=== PATIENT | female | born 1940 | race Caucasian/White ===

== ENCOUNTER 2016-11-06 10:48 | Day surgery (SDC) | payer BC ==
--- NOTE | ~2016-11-06 | EGD ---
EGD REPORT [facility] [address] [address] NAME: SAMUEL ORNELAS : [birth year] STATUS : REG [facility]#: [id number] AGE: 76 ADM/REG DATE : 11/06/16 MR#: [id number] REPORT SERV DATE: 11/06/16 DICTATED BY: MARIA DE JESUS BETANCUR DATE: 11/06/16 REPORT STATUS : Draft [facility]: [facility] DATE: 11/06/16 [facility] Patient Name: Samuel Ornelas Date of : 1940 Attending MD: LANCE BETANCUR MD Procedure Date No Time: 11/06/2016 Procedure: Colonoscopy Indications: Screening for colorectal malignant neoplasm, Last colonoscopy: 2004 Referring MD: MAYUR LEON MD Medicines: See the Anesthesia note for documentation of the administered medications Complications: No immediate complications. Estimated blood loss: None. Procedure: Pre-Anesthesia Assessment: - ASA Grade Assessment: III - A patient with severe systemic disease. After I obtained informed consent, the scope was passed under direct vision. Throughout the procedure, the patient's blood pressure, pulse, and oxygen saturations were monitored continuously. The PCF [id number] was introduced through the anus and advanced to the terminal ileum. The ileocecal valve, appendiceal orifice, terminal ileum and rectum were photographed. The entire colon was examined. The colonoscopy was performed without difficulty. The patient tolerated the procedure well. The quality of the bowel preparation was adequate. Findings: The perianal and digital rectal examinations were normal. The terminal ileum appeared normal. Multiple small and large-mouthed diverticula were found in the entire colon. Non-bleeding internal hemorrhoids were found during retroflexion and were Grade I (internal hemorrhoids that do not prolapse). No other significant abnormalities were identified in a careful examination of the remainder of the colon. Impression: - The examined portion of the ileum was normal. - Diverticulosis in the entire examined colon. - Non-bleeding internal hemorrhoids. Recommendation: - Patient has a contact number available for emergencies. The signs and symptoms of potential delayed complications were discussed with the patient. Return to normal activities tomorrow. Written discharge EGD REPORT [address] [place]. [address] NAME: SAMUEL ORNELAS : [birth year] STATUS : [place] [facility]#: [id number] AGE: 76 ADM/REG DATE : 11/06/16 MR#: [id number] REPORT SERV DATE: 11/06/16 DICTATED BY: MARIA DE JESUS BETANCUR DATE: 11/06/16 REPORT STATUS : Draft TRANSCRIBED BY: [employer] DATE: 11/06/16 instructions were provided to the patient. - High fiber diet indefinitely. - Discharge patient to home. - Repeat colonoscopy is not recommended for surveillance. Procedure Code(s): --- Professional --- 56523, Colonoscopy, flexible, proximal to splenic flexure; diagnostic, with or without collection of specimen(s) by brushing or washing, with or without colon decompression (separate procedure) Diagnosis Code(s): --- Professional --- K64.0, First degree hemorrhoids K57.30, Diverticulosis of large intestine without perforation or abscess without bleeding Z12.11, Encounter for screening for malignant neoplasm of colon CPT copyright 2013 [employer]. All rights reserved. The codes documented in this report are preliminary and upon mentally impaired teacher review may be revised to meet current compliance requirements. LANCE BETANCUR MD 11/06/2016 1:29 PM This report has been signed electronically. Number of Addenda: 0 Note Initiated On: 11/06/2016 1:06 PM Scope Withdrawal Time 0 hours 7 minutes 59 seconds [id number] [id number]
[~2016-11-06 10:48] MED LIST: CENTRUM PO; HYDROCHLOROT12.5 MG PO; Hard Nails PO; LOTE40 PO; VESICARE5 PO; VITAMIN D1000 UNI1 PO; ZYRTEC ALLGY10 MG PO
== END 2016-11-06 23:59 | disposition home or self-care (01) ==
LOC: DMU 10:48
PROVIDERS: Internal Medicine Gastroenterology
PROC: 0DJD8ZZ Inspection of Lower Intestinal Tract, Via Natural or Artificial Opening Endoscopic (ICD-10-PCS; principal; 2016-11-06 13:00)
DX: Z12.11 Encounter for screening for malignant neoplasm of colon (principal); K64.0 First degree hemorrhoids; K57.30 Diverticulosis of large intestine without perforation or abscess without bleeding; I10 Essential (primary) hypertension; G51.0 Bell's palsy; Q44.6 Cystic disease of liver; Z79.899 Other long term (current) drug therapy